=== PATIENT | male | born 1980 | race Caucasian/White ===

== ENCOUNTER 2021-05-04 04:10 | Emergency (ER) | payer SELFPAY ==
[~2021-05-04] VITALS: Ht 175.3 cm; Wt 76.0 kg
--- NOTE | 2021-05-04 04:28 | NUR ---
pt presents to the ed with n/v/d for 4 days. pt has not been able to keep down food or fluids. pt in gown, resting on gurney, and placed on continuous monioring.
[2021-05-04] MEDS ORDERED: DICYCLOMINE 20 MG TABLET ONE (05:25)
[2021-05-04] MEDS ORDERED: ONDANSETRON 2MG/ML, 2ML ONE (05:25)
[2021-05-04] MEDS ORDERED: DICYCLOMINE 20 MG TABLET PO ONE (05:30)
[2021-05-04] MEDS ORDERED: SODIUM CHLORIDE 0.9% 1,000ML IVBOLUS ONE (05:30)
[2021-05-04] MEDS ORDERED: ONDANSETRON 2MG/ML, 2ML IVPush ONE (05:30)
[2021-05-04] MEDS ORDERED: SODIUM CHLORIDE FLUSH 10ML SYR IVF ONE (05:30)
--- NOTE | 2021-05-04 05:40 | NUR ---
[facility] (husband) [phone]
--- NOTE | 2021-05-04 05:45 | NUR ---
20 G IV started to left forearm, IVF started.
[2021-05-04 05:53] LABS: BASOPHILS % (AUTO) 0 % (0-1); EOSINOPHILS % (AUTO) 3 % (1-7); LYMPHOCYTES % (AUTO) 26 % (22-44); MEAN CORPUSCULAR HEMOGLOBIN 26.3 pg (27.5-34.5); MEAN PLATELET VOLUME 6.9 fL (7.4-10.4); MONOCYTES % (AUTO) 16 % (2-9); NEUTROPHILS % (AUTO) 56 % (42-75); PLATELET COUNT 291 x10^3/uL (130-400); RED BLOOD COUNT 5.39 x10^6/uL (4.38-5.82); RED CELL DISTRIBUTION WIDTH 14.4 % (9.4-14.8)
[2021-05-04 05:55] LABS: MICROSCOPIC INDICATED
[2021-05-04 05:59] LABS: ALANINE AMINOTRANSFERASE 31 U/L (12-78); ALBUMIN 3.3 g/dL (3.4-5.0); ANION GAP 7 mmol/L (5-15); CALCIUM 8.2 mg/dL (8.5-10.1); CHLORIDE 99 mmol/L (98-107); CREATININE 0.85 mg/dL (0.7-1.3)
[2021-05-04 06:01] LABS: ALKALINE PHOSPHATASE 161 U/L (45-117); BILIRUBIN,TOTAL 0.4 mg/dL (0.2-1.0); TOTAL PROTEIN 9.4 g/dL (6.4-8.2)
--- NOTE | 2021-05-04 06:20 | NUR ---
PT AT CT
--- NOTE | 2021-05-04 06:33 | NUR ---
PT BACK FROM CT, PT RESTING ON GURNEY, DENIES NEEDS AT THIS TIME.
[2021-05-04] MEDS ORDERED: OMNIPAQUE 350 MG/ML, 100ML BOTTLE ONE (06:44)
[2021-05-04 06:46] LABS: CLOSTRIDIUM DIFFICILE ANTIGEN NEGATIVE; CLOSTRIDIUM DIFFICILE TOXIN NEGATIVE (Negative)
--- NOTE | 2021-05-04 06:49 | NUR ---
REPORT FROM [facility]
--- NOTE | 2021-05-04 07:43 | NUR ---
PT TO BATHROOM. STILL HAVING DIARHEA. SLIGHTLY NAUSEAS. ABDOMINAL PAIN BETTER.
[2021-05-04 07:45] VITALS: BP 118/65
[2021-05-04] MEDS ORDERED: CEFTRIAXONE 1,000 MG ONE (08:29)
[2021-05-04] MEDS ORDERED: DOXYCYCLINE 100MG TABLET ONE (08:29)
[2021-05-04] MEDS ORDERED: DOXYCYCLINE 100MG TABLET PO ONE (08:30)
[2021-05-04] MEDS ORDERED: CEFTRIAXONE 1,000 MG IM ONE (08:30)
--- NOTE | 2021-05-04 08:39 | NUR ---
medicated per orders. to be dc
--- NOTE | 2021-05-04 09:26 | NUR ---
Patient given discharge instructions and they have confirmed that they understand the instructions. Patient ambulatory with steady gait.
[2021-05-04 09:38] LABS: CRYPTOSPORIDIUM ANTIGEN POSITIVE (Negative)
== END 2021-05-04 09:28 | disposition home or self-care (01) ==
LOC: ED 09:20
DX: K62.89 Other specified diseases of anus and rectum (principal); R19.7 Diarrhea, unspecified; R10.84 Generalized abdominal pain; F17.200 Nicotine dependence, unspecified, uncomplicated
CPT/HCPCS: 36415; 74177; 80053; 81001; 83690; 85025; 87046; 87252; 87324; 87328; 87329; 87427; 87491; 87591; 96361; 96372; 96374; 99285; J0696; J2405; J7030; Q9967